=== PATIENT | female | born 1985 | race Caucasian/White ===

== ENCOUNTER 2019-01-16 09:50 | Inpatient (IN) | payer OTHER ==
[~2019-01-16] VITALS: Ht 185 cm; Wt 82.4 kg
[2019-01-16] MEDS ORDERED: RINGERS SOLUTION,LACTATED 1,000 ML IV ONE ×2 (09:54→13:36)
[2019-01-16] MEDS ORDERED: PREN-217 PO (09:58)
[2019-01-16] MEDS ORDERED: METOCLOPRAMIDE HCL 5 MG/ML 2 ML VIAL IVP ONE (10:00)
[2019-01-16] MEDS ORDERED: CITRIC ACID/SODIUM CITRATE 30 ML SOLUTION UDCUP PO ONE (10:00)
[2019-01-16 10:37] VITALS: BP 115/55
[2019-01-16 10:44] LABS: BASOPHILS % (AUTO) 0.5 % (0.0-2.0); EOSINOPHILS % (AUTO) 0.9 % (1.0-6.0); HEMATOCRIT 38.2 % (36-46); LYMPHOCYTES # (AUTO) 2.1 K/uL (1.0-4.8); LYMPHOCYTES % (AUTO) 22.6 % (22.0-44.0); MEAN CORPUSCULAR HEMOGLOBIN 33.5 pg (26.0-34.0); MEAN CORPUSCULAR HGB CONC 33.9 G/dL (31.0-37.0); MEAN CORPUSCULAR VOLUME 99 fL (80-100); MONOCYTES # (AUTO) 0.6 K/uL (0.1-1.0); MONOCYTES % (AUTO) 6.4 % (2.0-9.0); NEUTROPHILS # (AUTO) 6.5 K/uL (1.8-7.7); NEUTROPHILS % (AUTO) 69.6 % (40.0-70.0); PLATELET COUNT (AUTO) 157 K/uL (150-450); RED BLOOD CELL COUNT(AUTO) 3.87 MIL/uL (4.00-5.20)
[2019-01-16] MEDS ORDERED: CeFAZolin 2 GM/DEXTROSE 50 ML IV ONE (12:01)
[2019-01-16] MEDS ORDERED: MORPHINE SULFATE/PF 1 MG/ML 10 ML AMP ONE (12:01)
[2019-01-16] MEDS ORDERED: FentaNYL CITRATE-PF 100 MCG/2 ML VIAL ONE (12:01)
[2019-01-16] MEDS ORDERED: BUPIVACAINE HCL/DEX-WATER/PF 0.75% 2 ML AMP ONE (12:02)
[2019-01-16] MEDS ORDERED: GUM MASTIC/STORAX/MSAL/ALCOHOL LIQUID 0.67 ML VIAL TP ONE (13:11)
[2019-01-16] MEDS ORDERED: RINGERS SOLUTION,LACTATED 1,000 ML IV SCH ×2 (13:38→14:13)
[2019-01-16] MEDS ORDERED: OXYTOCIN 30 UNITS/LACT RINGERS 500 ML IV ONE ×2 (13:38→14:13)
[2019-01-16] MEDS ORDERED: NALOXONE HCL 0.4 MG/ML VIAL IVP PRN (13:45)
[2019-01-16] MEDS ORDERED: DiphenhydrAMINE HCL 50 MG/ML VIAL IVP PRN ×2 (13:45)
[2019-01-16] MEDS ORDERED: LANOLIN 7 GM OINTMENT TP PRN ×2 (13:45→14:15)
[2019-01-16] MEDS ORDERED: ACETAMINOPHEN 1000 MG/ISO-OSM 100 ML IV ONE ×2 (13:45→14:22)
[2019-01-16] MEDS ORDERED: OxyCODONE HCL/ACETAMINOPHEN 5-325 MG TABLET PO PRN ×4 (13:45→14:15)
[2019-01-16] MEDS ORDERED: FentaNYL CITRATE-PF 100 MCG/2 ML VIAL IVP PRN ×4 (13:45)
[2019-01-16] MEDS ORDERED: NALBUPHINE HCL 10 MG/ML VIAL IVP PRN ×3 (13:45)
[2019-01-16] MEDS ORDERED: MEPERIDINE-PF 25 MG/ML VIAL IVP PRN (13:45)
[2019-01-16] MEDS ORDERED: ONDANSETRON HCL 4 MG/2 ML VIAL IVP PRN ×2 (13:45)
[2019-01-16] MEDS: ACETAMINOPHEN 1000 MG/ISO-OSM 100 ML IV SCH ×2 (14:41→23:08)
[2019-01-16] MEDS: KETOROLAC TROMETHAMINE 30 MG/ML VIAL IVP SCH ×2 (16:03→22:04)
[2019-01-16] MEDS ORDERED: MAGNESIUM HYDROXIDE SUSPENSION 30 ML UDCUP PO SCH (21:00)
[2019-01-16] MEDS: MAGNESIUM HYDROXIDE SUSPENSION 30 ML UDCUP PO SCH (22:03)
[2019-01-17 06:27] LABS: BASOPHILS % (AUTO) 0.2 % (0.0-2.0); EOSINOPHILS % (AUTO) 0.1 % (1.0-6.0); HEMATOCRIT 31.9 % (36-46); HEMOGLOBIN 10.9 g/dL (12.0-16.0); LYMPHOCYTES % (AUTO) 14.8 % (22.0-44.0); MEAN CORPUSCULAR HEMOGLOBIN 33.6 pg (26.0-34.0); MEAN CORPUSCULAR HGB CONC 34.4 G/dL (31.0-37.0); MEAN CORPUSCULAR VOLUME 98 fL (80-100); MONOCYTES # (AUTO) 0.9 K/uL (0.1-1.0); MONOCYTES % (AUTO) 6.7 % (2.0-9.0); NEUTROPHILS # (AUTO) 10.6 K/uL (1.8-7.7); NEUTROPHILS % (AUTO) 78.2 % (40.0-70.0); PLATELET COUNT (AUTO)-OB 133 K/uL (150-450); RED BLOOD CELL COUNT(AUTO) 3.26 MIL/uL (4.00-5.20); RED CELL DISTRIBUTION WIDTH 12.5 % (11.5-14.5)
[2019-01-17] MEDS: IBUPROFEN 800 MG TABLET PO PRN ×2 (13:27→21:09)
[2019-01-17] MEDS ORDERED: IBUPROFEN 800 MG TABLET PO PRN (14:15)
[2019-01-17] MEDS: MAGNESIUM HYDROXIDE SUSPENSION 30 ML UDCUP PO SCH (21:08)
[2019-01-18] MEDS: IBUPROFEN 800 MG TABLET PO PRN (02:41)
[2019-01-18] MEDS ORDERED: ONDANSETRON HCL 4 MG/2 ML VIAL IVP ONE (05:34)
[2019-01-18] MEDS ORDERED: OXYTOCIN 10 UNITS/ML VIAL IM ONE (05:34)
[2019-01-18] MEDS ORDERED: EPHEDrine SULFATE 50 MG/ML VIAL IM ONE (05:34)
[2019-01-18] MEDS ORDERED: LIDOCAINE/PF 2% 5 ML VIAL IM ONE (05:34)
== END 2019-01-18 14:50 | disposition home or self-care (01) | DRG 788 ==
LOC: 4S 09:50 → OBSVTOIN 09:50 → 4S 15:25
PROVIDERS: ADMIT Obstetrics & Gynecology; ATTEND Obstetrics & Gynecology
PROC: 10D00Z1 Extraction of Products of Conception, Low, Open Approach (ICD-10-PCS; principal; 2019-01-16)
DX: O82 Encounter for cesarean delivery without indication (principal); Z3A.37 37 weeks gestation of pregnancy; Z37.0 Single live birth
CPT/HCPCS: 85461; 86850; 86870; 86900; 86901; 86922; 87081; 99219; J0131; J0690; J1885; J2405; J2590; J2765; J3010; J3490; J7120